=== PATIENT | female | born 1990 | race Hispanic/Latino ===

== ENCOUNTER 2021-08-19 12:36 | Observation (INO) | payer MEDICAID ==
[~2021-08-19] VITALS: Ht 157.5 cm; Wt 107.0 kg
[2021-08-19 13:32] LABS: BASOPHILS % (AUTO) 0.3 % (0.0-5.0); EOSINOPHILS % (AUTO) 0.8 % (0.0-8.0); HEMATOCRIT 29.7 % (36-48); LYMPHOCYTES % (AUTO) 26.1 % (21.0-51.0); MEAN CORPUSCULAR HEMOGLOBIN 28.3 pg (27.0-33.0); MEAN CORPUSCULAR HGB CONC 34.3 g/dL (32.0-36.0); MEAN CORPUSCULAR VOLUME 82.3 fL (79-99); MONOCYTES % (AUTO) 3.9 % (3.0-13.0); NEUTROPHILS % (AUTO) 68.3 % (40.0-77.0); PLATELET COUNT (AUTO) 240 K/uL (130-400); RED BLOOD CELL COUNT(AUTO) 3.61 MIL/uL (4.00-5.50); RED CELL DISTRIBUTION WIDTH 13.5 % (11.0-15.5); WHITE BLOOD COUNT (AUTO) 9.1 K/uL (4.8-10.8)
[2021-08-19 13:40] LABS: INR 0.91 (0.85-1.15)
[2021-08-19 13:41] LABS: APPEARANCE,URINE Clear (CLEAR); BILIRUBIN,URINE Negative (NEGATIVE); COLOR,URINE Yellow (YELLOW); GLUCOSE, URINE (UA) Negative (NEGATIVE); KETONES,URINE Negative (NEGATIVE); LEUKOCYTE ESTERASE ,URINE Moderate (NEGATIVE); NITRATE,URINE Negative (NEGATIVE); OCCULT BLOOD,URINE Negative (NEGATIVE); PARTIAL THROMBOPLASTIN TIME 27.6 SEC (26.3-35.5); PROTEIN,URINE Trace mg/dL (NEGATIVE); UROBILINOGEN,URINE 0.2 mg/dL (0.2-1.0)
[2021-08-19 13:43] LABS: CREATININE 0.6 mg/dL (0.5-1.5); POTASSIUM 3.8 mmol/L (3.5-5.1)
[2021-08-19 13:48] LABS: ALBUMIN 2.3 g/dL (3.5-5.0); BILIRUBIN,TOTAL 0.2 mg/dL (0.2-1.0); TOTAL PROTEIN, SERUM 6.8 g/dL (6.0-8.3); URIC ACID 6.9 mg/dL (2.6-7.2)
[2021-08-19 13:55] LABS: RBC,URINE None Seen /HPF (0-1)
[2021-08-19 13:56] LABS: BACTERIA,URINE Few /HPF (None Seen)
[2021-08-28] MEDS ORDERED: ACET-2079 PO (11:45)
== END 2021-08-19 15:10 | disposition home or self-care (01) ==
LOC: LDH 12:36
PROVIDERS: ADMIT Obstetrics & Gynecology; ATTEND Obstetrics & Gynecology
DX: Z34.93 Encounter for supervision of normal pregnancy, unspecified, third trimester (principal); Z79.01 Long term (current) use of anticoagulants; Z79.899 Other long term (current) drug therapy; Z3A.35 35 weeks gestation of pregnancy
CPT/HCPCS: 36415; 59025; 76805; 76819; 80053; 81001; 84550; 85025; 85384; 85610; 85730; 87088; G0378 ×3; G0379

== ENCOUNTER 2021-08-26 17:04 | Inpatient (IN) | payer MEDICAID ==
[~2021-08-26] VITALS: Ht 157.5 cm; Wt 108.9 kg
[2021-08-26] MEDS ORDERED: CEFAZOLIN SODIUM 1 GM VIAL IVP PRN (17:30)
[2021-08-26] MEDS ORDERED: LACTATED RINGERS 1000ML 1,000 ML IV SCH ×2 (17:30)
[2021-08-26 17:56] LABS: APPEARANCE,URINE Cloudy (CLEAR); BILIRUBIN,URINE Negative (NEGATIVE); COLOR,URINE Yellow (YELLOW); GLUCOSE, URINE (UA) Negative (NEGATIVE); KETONES,URINE Trace mg/dL (NEGATIVE); LEUKOCYTE ESTERASE ,URINE Small (NEGATIVE); NITRATE,URINE Negative (NEGATIVE); OCCULT BLOOD,URINE Negative (NEGATIVE); PH,URINE 6.5 (5.0-8.0); PROTEIN,URINE POS 1+ mg/dL (NEGATIVE)
[2021-08-26 18:07] LABS: BASOPHILS % (AUTO) 0.2 % (0.0-5.0); EOSINOPHILS % (AUTO) 0.8 % (0.0-8.0); HEMATOCRIT 28.7 % (36-48); LYMPHOCYTES % (AUTO) 26.6 % (21.0-51.0); MEAN CORPUSCULAR HEMOGLOBIN 27.9 pg (27.0-33.0); MEAN CORPUSCULAR HGB CONC 33.8 g/dL (32.0-36.0); MEAN CORPUSCULAR VOLUME 82.5 fL (79-99); MONOCYTES % (AUTO) 6.5 % (3.0-13.0); NEUTROPHILS % (AUTO) 65.7 % (40.0-77.0); PLATELET COUNT (AUTO) 238 K/uL (130-400); RED BLOOD CELL COUNT(AUTO) 3.48 MIL/uL (4.00-5.50); RED CELL DISTRIBUTION WIDTH 13.8 % (11.0-15.5); WHITE BLOOD COUNT (AUTO) 8.4 K/uL (4.8-10.8)
[2021-08-26 18:09] LABS: RBC,URINE 0-1 /HPF (0-1)
[2021-08-26 18:10] LABS: BACTERIA,URINE Few /HPF (None Seen); MUCUS,URINE Few LPF (None Seen); SQUAMOUS EPITHELIAL CELL,UR Moderate /HPF (0-2)
[2021-08-26 18:17] LABS: CREATININE 0.6 mg/dL (0.5-1.5); POTASSIUM 3.5 mmol/L (3.5-5.1)
[2021-08-26 18:19] LABS: INR 0.89 (0.85-1.15); PROTHROMBIN TIME 9.8 SEC (9.6-11.6)
[2021-08-26 18:20] LABS: PARTIAL THROMBOPLASTIN TIME 25.2 SEC (26.3-35.5)
[2021-08-26 18:21] LABS: ALBUMIN 2.3 g/dL (3.5-5.0); BILIRUBIN,TOTAL 0.1 mg/dL (0.2-1.0); TOTAL PROTEIN, SERUM 6.7 g/dL (6.0-8.3); URIC ACID 6.3 mg/dL (2.6-7.2)
[2021-08-26 19:42] VITALS: BP 142/87
[2021-08-26] MEDS ORDERED: PREN1TAB80 PO (19:47)
[2021-08-27] MEDS ORDERED: MISOPROSTOL 200 MCG TABLET ONE (06:31)
[2021-08-27] MEDS ORDERED: MORPHINE PF 100MG/10ML AMP IV ONE (06:58)
[2021-08-27] MEDS ORDERED: ONDANSETRON 4MG INJ ONE (07:15)
[2021-08-27] MEDS ORDERED: EPHEDRINE SULFATE 50 MG/ML AMPULE ONE (07:16)
[2021-08-27] MEDS ORDERED: OXYTOCIN-LR 20 UNITS/1000 ML 1,000 ML IV ONE (07:58)
[2021-08-27] MEDS ORDERED: DiphenhydrAMINE HCL 50 MG/ML VIAL IVP PRN (09:00)
[2021-08-27] MEDS ORDERED: NALOXONE HCL 0.4 MG/1 ML ML IVP PRN ×3 (09:00)
[2021-08-27] MEDS ORDERED: KETOROLAC 30MG VIAL (30MG/ML) IV PRN (09:00)
[2021-08-27] MEDS ORDERED: ONDANSETRON 4MG INJ IVP PRN (09:00)
[2021-08-27] MEDS ORDERED: EPHEDRINE SULFATE 50 MG/ML AMPULE IVP PRN (09:00)
[2021-08-27] MEDS ORDERED: PROMETHAZINE HCL 25 MG/ML 1ML AMPULE IM PRN (09:30)
[2021-08-27] MEDS ORDERED: MEPERIDINE-PF 75 MG/ML SYG IM PRN (09:30)
[2021-08-27] MEDS ORDERED: OXYTOCIN-LR 20 UNITS/1000 ML 1,000 ML IV PRN (09:30)
[2021-08-27] MEDS ORDERED: 0.9%NACL 10ML VIAL IVP PRN (09:30)
[2021-08-27 10:04] VITALS: BP 134/84
[2021-08-27 11:10] LABS: RAPID PLASMA REAGIN NONREACTIVE (NONREACTIVE)
[2021-08-27 11:20] VITALS: BP 132/85
[2021-08-27] MEDS: CEFAZOLIN SODIUM 1 GM VIAL IVP SCH ×2 (15:08→23:12)
[2021-08-27] MEDS: ACETAMINOPHEN WITH CODEINE 1 TAB TAB PO PRN (15:47)
[2021-08-27] MEDS: DEXTROSE 5 %-0.45 % NACL 1,000 ML IV PRN ×2 (15:48→22:18)
[2021-08-27 16:44] VITALS: BP 147/95
[2021-08-27 19:28] VITALS: BP 132/87
[2021-08-27 23:42] VITALS: BP 119/77
[2021-08-28 03:54] VITALS: BP 129/81
[2021-08-28] MEDS: DEXTROSE 5 %-0.45 % NACL 1,000 ML IV PRN (04:31)
[2021-08-28] MEDS: ACETAMINOPHEN WITH CODEINE 1 TAB TAB PO PRN (04:32)
[2021-08-28 06:37] LABS: HEMATOCRIT 26.5 % (36-48); MEAN CORPUSCULAR HEMOGLOBIN 27.9 pg (27.0-33.0); MEAN CORPUSCULAR HGB CONC 33.6 g/dL (32.0-36.0); MEAN CORPUSCULAR VOLUME 83.1 fL (79-99); RED BLOOD CELL COUNT(AUTO) 3.19 MIL/uL (4.00-5.50); RED CELL DISTRIBUTION WIDTH 13.5 % (11.0-15.5); WHITE BLOOD COUNT (AUTO) 11.1 K/uL (4.8-10.8)
[2021-08-28] MEDS: CEFAZOLIN SODIUM 1 GM VIAL IVP SCH (07:00)
[2021-08-28] MEDS ORDERED: DIPH,PERTUSS(ACELL),TET VAC/PF 0.5 ML VIAL IM ONE (07:00)
[2021-08-28 07:50] VITALS: BP 132/86
[2021-08-28] MEDS ORDERED: ACETAMINOPHEN WITH CODEINE 1 TAB TAB PO PRN (08:30)
[2021-08-28] MEDS ORDERED: HYDROCODONE/ACETAMINOPHEN 5/325 MG TAB PO PRN (08:30)
[2021-08-28] MEDS ORDERED: LANOLIN 30GM OINTMENT TP PRN (08:30)
[2021-08-28] MEDS ORDERED: SIMETHICONE 80 MG TAB.CHEW PO PRN (08:30)
[2021-08-28] MEDS ORDERED: BISACODYL 10 MG SUPP.RECT RC PRN (08:30)
[2021-08-28] MEDS ORDERED: ACETAMINOPHEN 500 MG TABLET PO PRN (08:30)
[2021-08-28] MEDS ORDERED: DOCUSATE SODIUM 100 MG CAP PO SCH (09:00)
[2021-08-28] MEDS: IBUPROFEN 600 MG TABLET PO PRN ×2 (09:22→14:47)
[2021-08-28 11:22] VITALS: BP 132/86
[2021-08-28] MEDS ORDERED: ACET1TAB25 PO (11:45)
== END 2021-08-28 16:20 | disposition home or self-care (01) | DRG 540 ==
LOC: LDH 17:04 → WSH 08-27 10:10
PROVIDERS: ADMIT Obstetrics & Gynecology; ATTEND Obstetrics & Gynecology
PROC: 3E0234Z Introduction of Serum, Toxoid and Vaccine into Muscle, Percutaneous Approach (ICD-10-PCS; 2021-08-27)
PROC: 10D00Z1 Extraction of Products of Conception, Low, Open Approach (ICD-10-PCS; principal; 2021-08-27 07:00)
DX: O14.04 Mild to moderate pre-eclampsia, complicating childbirth (principal); O99.214 Obesity complicating childbirth; E66.01 Morbid (severe) obesity due to excess calories; O34.211 Maternal care for low transverse scar from previous cesarean delivery; O99.824 Streptococcus B carrier state complicating childbirth; Z37.0 Single live birth; Z3A.36 36 weeks gestation of pregnancy; Z23 Encounter for immunization
CPT/HCPCS: 36415; 59510; 76805; 80053; 81001; 84550; 85025; 85027; 85384; 85610; 85730; 86592; 86701; 86850; 86900; 86901; 87088; 87340; 87390; 90715; A4344; G0378; J0690; J2175; J2274; J2405; J2550; J2590; J3490; J7120